=== PATIENT | female | born 1955 | race Two or more races ===

== ENCOUNTER 2024-12-03 10:16 | Emergency (ER) | payer MEDICARE, OTHER ==
[2024-12-03] MEDS ORDERED: EPINEPHrine 1:10,000 [1 MG/10 ML] SYRINGE ONE (17:44)
== END 2024-12-03 13:06 ==
LOC: EMS 10:18
DX: I46.9 Cardiac arrest, cause unspecified (principal); Z46.82 Encounter for fitting and adjustment of non-vascular catheter; Z71.6 Tobacco abuse counseling
CPT/HCPCS: 99285; 92950; J0171